=== PATIENT | female | born 1995 | race Native Hawaiian/Other Pacific Islander ===

== ENCOUNTER 2016-12-30 09:49 | Outpatient (CLI) | payer OTHER ==
--- NOTE | 2016-12-30 10:20 | XRay Report ---
CERVICAL SPINE: Views of the cervical spine demonstrate normal bony alignment, vertebral height and interspace distances. Oblique views show patent foramina and normal apophyseal joint alignment. The prevertebral soft tissues are not thickened. IMPRESSION: Normal study.
== END 2016-12-30 09:50 | disposition home or self-care (01) ==
LOC: SPVIMAG 09:49
PROVIDERS: ATTEND Family Medicine
DX: M54.2 Cervicalgia (principal)
CPT/HCPCS: 72050